=== PATIENT | male | born 1945 | race Caucasian/White ===

== ENCOUNTER → 2023-11-03 13:10 | Outpatient (REF) | payer OTHER, SELFPAY | LOC: CLAB 13:10 | PROVIDERS: ATTENDING PHYSICIAN Specialist | DX: R31.9 Hematuria, unspecified (principal) | CPT/HCPCS: 87086 ==

== ENCOUNTER → 2023-11-03 13:36 | Outpatient (REF) | payer OTHER, SELFPAY ==
[2023-11-03 14:47] LABS: Blood Urea Nitrogen 25 mg/dl (9-20); Calcium 9.8 mg/dl (8.4-10.2); Carbon Dioxide 28 mmol/L (22-30); Chloride 103 mmol/L (98-107); Glucose 112 mg/dl (70-99); Potassium 4.9 mmol/L (3.5-5.1); Sodium 140 mmol/L (135-145); eGFR > 60.00
== END ==
LOC: REG 13:36
PROVIDERS: ATTENDING PHYSICIAN Specialist
DX: Z12.5 Encounter for screening for malignant neoplasm of prostate (principal)
CPT/HCPCS: 36415; 80048; G0103

== ENCOUNTER → 2023-11-08 07:20 | Outpatient (REF) | payer OTHER, SELFPAY | LOC: RAD 07:20 | PROVIDERS: ATTENDING PHYSICIAN Specialist; FAMILY PHYSICIAN Internal Medicine | DX: Z12.5 Encounter for screening for malignant neoplasm of prostate (principal) | CPT/HCPCS: 74178; Q9967 ==

== ENCOUNTER 2023-12-08 06:24 | Day surgery (SDC) | payer OTHER, SELFPAY ==
[2023-11-25 12:34] VITALS: BMI 33.4
[2023-11-25 13:53] LABS: Hematocrit 44.3 % (39.0-52.0); Hemoglobin 15.3 g/dL (13.0-18.0); Mean Corp Hgb Conc. 34.5 g/dL (33.0-37.0); Mean Corpuscular Hgb 32.3 pg (27.0-31.0); Mean Corpuscular Volume 93.5 fL (80.0-94.0); Mean Platelet Volume 10.2 fL (7.4-10.4); Platelet Count 180 10^3/uL (130-400); Red Blood Cell Count 4.74 10^6/uL (4.70-6.10); Red Cell Dist. Width 11.7 % (11.5-14.5); White Blood Cell Count 8.9 10^3/uL (4.8-10.8)
[2023-11-25 14:04] LABS: APTT 29.8 Sec (23.4-35.0); INR 1.12; PT 14.4 Sec (11.4-14.6)
[2023-12-08] VITALS (20 sets, daily range): BP systolic 124–173; BP diastolic 51–120; BMI 33.4
[2023-12-08] MEDS: NORMOSOL-R 1000 IV (10:34)
[2023-12-08] MEDS: SYRINGE NON-PUMP 50 MG IRRIG ×2 (12:20→12:21)
[2023-12-08] MEDS: SYRINGE NON-PUMP 50 ML IRRIG ×2 (12:20→12:21)
[2023-12-08] MEDS: Pyridium 200 MG PO ×2 (12:40→22:51)
[2023-12-08] MEDS: VALIUM INJECTION 5 MG IV (12:41)
[2023-12-08] MEDS: DILAUDID 0.25 MG IV ×3 (13:29→14:16)
[2023-12-08] MEDS: FLOMAX 0.4 MG PO (14:22)
[2023-12-08] MEDS: DETROL LA 4 MG PO (14:22)
--- NOTE | 2023-12-08 16:15 | PTCARENOTE ---
Pt received from the PACU via stretcher. Transport was w/o incident. Pt is AAOx3, HRR, lungs are clear, abd round, soft. Pt denies nausea. Pt reports bladder Pain. CBI running without diff. Urine is sl pink/clear, no blood clots noted. Will medicate
for pain as ordered. VSS, Pt is afebrile. Pt instructed on plan of care. Pt verbalized understanding of instructions. Call odonnell is within reach.
[2023-12-08] MEDS: COLACE 100 MG PO (17:41)
[2023-12-08] MEDS: MORPHINE SULFATE 4 MG IV ×2 (17:41→22:52)
[2023-12-08] MEDS: FLUSH (NSS) 2 FLUSH IV (22:53)
[2023-12-09 03:05] VITALS: BP 125/61
[2023-12-09 07:50] VITALS: BP 158/78
[2023-12-09] MEDS: COLACE PO ×2 (08:37→11:19)
[2023-12-09 11:18] VITALS: BP 153/72
--- NOTE | 2023-12-09 11:24 | CM ---
Initial assessment completed with patient with daughter in room. [facility] with 4 steps to enter. No DME or in-home services. [employer]ER was independent and drove. No history of Psychiatric Hospitalizations.
Pharmacy is [facility] in [place]. Patient does not have a PCP. Usually goes to urgent care if he has medical needs. Discharge Plan of Care: TBD.
--- NOTE | 2023-12-09 13:04 | W.PN.URO.CBU ---
Today's Communication / Plan
-
discharge
Assessment / Plan
-
stable
Diagnosis
-
Date of Service: December 09, 2023
-
Patient Diagnosis: bladder cancer; kidney stones
Post Op Day: 1 s/p TURBT and bilateral ureteroscopies + stents
Subjective
-
annoyed by Mota
Objective
-
Vital Signs
Temp Pulse Resp BP Pulse Ox
97.9 F 109 20 153/72 95
12/09/23 11:18 12/09/23 11:18 12/09/23 11:18 12/09/23 11:18 12/09/23 11:18
Intake and Output
12/08/23 12/09/23 12/10/23
06:59 06:59 06:59
Intake Total 1000 / 1000
Output Total 2400 / 2400
Balance -1400 / -1400
Intake:
Oral fluids 600 / 600
IV fluids (Total) 400 / 400
Normosol 400 / 400
Output:
Urinary Drain Output (Total) 0 / 0
Left Nephrostomy 0 / 0
Right Nephrostomy 0 / 0
True Urine Output from CBI 2400 / 2400
Laboratory Results
11/25/23 12:25
Physical Exam
-
General - well developed, well nourished, no acute distress
Abdomen - soft, non-tender, positive bowel sounds, no CVAT, no incisional pain or distention
Genitalia - orange urine via Mota
--- NOTE | 2023-12-09 14:41 | CM ---
Patient has been medically cleared for discharge to home with no additional skilled services. Patient discharging with hull and is scheduled for removal on Wednesday12/13/23. Daughter transport home.
== END 2023-12-09 14:54 | disposition home or self-care (01) ==
LOC: SDS 06:24
PROVIDERS: ATTENDING PHYSICIAN Specialist
DX: C67.8 Malignant neoplasm of overlapping sites of bladder (principal); R31.0 Gross hematuria; N20.0 Calculus of kidney; N40.3 Nodular prostate with lower urinary tract symptoms
CPT/HCPCS: 52235; 52352; 52332; 88307; 36415; 74019; 76000; 82365; 85027; 85610; 85730; 93005; C1713; C2617; J9201

== ENCOUNTER 2024-03-22 06:25 | Day surgery (SDC) | payer OTHER, SELFPAY ==
[2024-03-17 08:53] LABS: Hematocrit 40.4 % (39.0-52.0); Hemoglobin 14.1 g/dL (13.0-18.0); Mean Corp Hgb Conc. 34.9 g/dL (33.0-37.0); Mean Corpuscular Hgb 32.7 pg (27.0-31.0); Mean Corpuscular Volume 93.7 fL (80.0-94.0); Mean Platelet Volume 9.9 fL (7.4-10.4); Platelet Count 179 10^3/uL (130-400); Red Blood Cell Count 4.31 10^6/uL (4.70-6.10); Red Cell Dist. Width 12.1 % (11.5-14.5); White Blood Cell Count 8.7 10^3/uL (4.8-10.8)
[2024-03-17 09:26] LABS: Blood Urea Nitrogen 23 mg/dl (9-20); Calcium 9.4 mg/dl (8.4-10.2); Carbon Dioxide 27 mmol/L (22-30); Chloride 104 mmol/L (98-107); Glucose 101 mg/dl (70-99); Potassium 4.6 mmol/L (3.5-5.1); Sodium 143 mmol/L (135-145); eGFR > 60.00
[2024-03-17 09:33] VITALS: BMI 34.0
[2024-03-22] VITALS (9 sets, daily range): BP systolic 120–156; BP diastolic 65–94; BMI 34.0
[2024-03-22] MEDS: CYSVIEW KIT 100 MG INTRAVES (07:34)
[2024-03-22] MEDS: TYLENOL 1000 MG PO (08:31)
[2024-03-22] MEDS: Pyridium 200 MG PO (10:41)
== END 2024-03-22 11:35 | disposition home or self-care (01) ==
LOC: SDS 06:25
PROVIDERS: ATTENDING PHYSICIAN Specialist
DX: C67.9 Malignant neoplasm of bladder, unspecified (principal)
CPT/HCPCS: 52204; C9738; 88307; 36415; 80048; 85027; A9589

== ENCOUNTER → 2024-04-17 07:36 | Outpatient (REF) | payer OTHER, SELFPAY ==
[2024-04-17 09:17] LABS: ALT (SGPT) 28 U/L (0-50); AST (SGOT) 28 U/L (17-59); Albumin 4.3 g/dl (3.5-5.0); Alkaline Phosphatase 55 U/L (38-126); Blood Urea Nitrogen 20 mg/dl (9-20); Calcium 9.2 mg/dl (8.4-10.2); Carbon Dioxide 28 mmol/L (22-30); Chloride 103 mmol/L (98-107); Glucose 111 mg/dl (70-99); HDL Cholesterol 55 mg/dl; LDL Cholesterol, Calculated 56 mg/dl; Potassium 4.3 mmol/L (3.5-5.1); Sodium 141 mmol/L (135-145); Total Cholesterol 132 mg/dl (50-199); Total Protein 6.9 g/dl (6.3-8.2); Triglyceride 108 mg/dl (10-149); Very Low Density Lipoprotein 21 mg/dl (0-30); eGFR > 60.00
== END ==
LOC: REG 07:36
PROVIDERS: ATTENDING PHYSICIAN Internal Medicine Cardiovascular Disease
DX: E78.00 Pure hypercholesterolemia, unspecified (principal)
CPT/HCPCS: 36415; 80053; 80061

== ENCOUNTER → 2025-04-06 07:01 | Outpatient (REF) | payer OTHER, SELFPAY ==
[2025-04-06 08:49] LABS: ALT (SGPT) 30 U/L (0-50); AST (SGOT) 26 U/L (17-59); Albumin 4.4 g/dl (3.5-5.0); Alkaline Phosphatase 59 U/L (38-126); Blood Urea Nitrogen 19 mg/dl (9-20); Calcium 9.4 mg/dl (8.4-10.2); Carbon Dioxide 28 mmol/L (22-30); Chloride 104 mmol/L (98-107); Glucose 112 mg/dl (70-99); HDL Cholesterol 49 mg/dl; LDL Cholesterol, Calculated 66 mg/dl; Potassium 4.3 mmol/L (3.5-5.1); Sodium 137 mmol/L (135-145); Total Protein 7.4 g/dl (6.3-8.2); Very Low Density Lipoprotein 19 mg/dl (0-30); eGFR > 60.00
== END ==
LOC: REG 07:01
PROVIDERS: ATTENDING PHYSICIAN Internal Medicine Cardiovascular Disease
DX: I25.10 Atherosclerotic heart disease of native coronary artery without angina pectoris (principal); I10 Essential (primary) hypertension; E78.00 Pure hypercholesterolemia, unspecified
CPT/HCPCS: 36415; 80053; 80061; 83880